=== PATIENT | male | born 1950 | race Asian ===

== ENCOUNTER 2016-10-26 13:49 | Emergency (ER) | payer OTHER ==
[~2016-10-26] VITALS: Ht 162.6 cm; Wt 60.2 kg
[2016-10-26] MEDS ORDERED: HYDROcodone/APAP 5/325 TABLET PO ONE (15:30)
[2016-10-26] MEDS ORDERED: ASPIRIN 81 MG TABLET CHEW PO ONE (15:30)
[2016-10-26] MEDS ORDERED: HYDROcodone/APAP 5/325 TABLET ONE (15:30)
[2016-10-26] MEDS ORDERED: ASPIRIN 81 MG TABLET CHEW ONE (15:30)
[2016-10-26 15:45] LABS: BLOOD UREA NITROGEN 13 mg/dL (7-18)
[2016-10-26 15:49] LABS: IS PT STATUS REG ER OR PRE ER? YES
[2016-10-26 16:55] VITALS: BP 148/87
[2016-10-26] MEDS ORDERED: LOSA25TA5 PO (17:02)
[2016-10-26] MEDS ORDERED: AMLO10TA2 PO (17:02)
== END 2016-10-26 17:56 | disposition home or self-care (01) ==
LOC: ED 14:27
DX: R07.89 Other chest pain (principal); I10 Essential (primary) hypertension
CPT/HCPCS: 36415; 71010; 80048; 82040; 84484; 85025; 85379; 93005